=== PATIENT | male | born 1940 | race Caucasian/White ===

== ENCOUNTER 2017-07-28 03:56 | Emergency (ER) | payer OTHER ==
[~2017-07-28] VITALS: Ht 175.3 cm; Wt 71.4 kg
[~2017-07-28 03:56] MED LIST: B-100 COMPLEX1 EACH PO; CARVEDILOL6.25 MG PO; CO Q-1010 MG PO; COREG6.25 M1 PO; CRESTOR40 MG PO; D RIBOSE PO; FLAX SEED OIL1 EACH PO; FLOMAX0.4 MG PO; GAVISCON EXTRA355 ML PO; GLUCOSAMINE &1 EAC1 PO; LEUPROLIDE SC; LIPITOR40 MG PO; LISINOPRIL10 MG PO; LOFIBRA54 MG PO; LOW DOSE ASPIRI81 M2 PO; MAALOX SUSPENS148 ML PO; MULTIVITAMIN1 EAC2 PO; PLAVIX75 MG PO; PROTONIX40 MG PO; ZANTAC150 MG PO; ZESTRIL,PRINIVIL5 MG PO; [UNRECOGNIZED DRUG - OTHER] SC
[2017-07-28 05:30] VITALS: BP 156/82
== END 2017-07-28 05:45 | disposition home or self-care (01) ==
LOC: EME 03:56
DX: S00.83XA Contusion of other part of head, initial encounter (principal); W22.01XA Walked into wall, initial encounter; Y93.01 Activity, walking, marching and hiking; Y92.002 Bathroom of unspecified non-institutional (private) residence as the place of occurrence of the external cause; E78.5 Hyperlipidemia, unspecified; I10 Essential (primary) hypertension; I25.2 Old myocardial infarction; K21.9 Gastro-esophageal reflux disease without esophagitis; Z95.5 Presence of coronary angioplasty implant and graft; Z79.82 Long term (current) use of aspirin; Z79.02 Long term (current) use of antithrombotics/antiplatelets; Z87.891 Personal history of nicotine dependence